=== PATIENT | male | born 1940 | race Caucasian/White ===

== ENCOUNTER 2022-12-23 11:41 | Outpatient (CLI) | payer OTHER, SELFPAY | END 2022-12-23 11:42 | disposition home or self-care (01) | LOC: FBOREF 11:42 | PROVIDERS: PCP Family Medicine; Visit Provider Family Medicine | DX: Z00.00 Encounter for general adult medical examination without abnormal findings (principal); I10 Essential (primary) hypertension | CPT/HCPCS: 80048 ==

== ENCOUNTER 2023-07-23 07:55 | Outpatient (CLI) | payer OTHER, SELFPAY | END 2023-07-23 07:56 | disposition home or self-care (01) | LOC: NFLDREF 07-24 05:23 | PROVIDERS: PCP Family Medicine; Referring Provider Family Medicine; Visit Provider Family Medicine | DX: E11.9 Type 2 diabetes mellitus without complications (principal); E78.5 Hyperlipidemia, unspecified; I48.92 Unspecified atrial flutter; I10 Essential (primary) hypertension; E78.2 Mixed hyperlipidemia; Z86.718 Personal history of other venous thrombosis and embolism | CPT/HCPCS: 80061 ==

== ENCOUNTER 2024-01-06 11:42 | Outpatient (CLI) | payer OTHER, SELFPAY | END 2024-01-06 11:43 | disposition home or self-care (01) | PROVIDERS: PCP Family Medicine; Visit Provider Family Medicine | DX: E78.2 Mixed hyperlipidemia (principal); I10 Essential (primary) hypertension; E11.9 Type 2 diabetes mellitus without complications; K76.0 Fatty (change of) liver, not elsewhere classified | CPT/HCPCS: 80048; 80061; 84460 ==

== ENCOUNTER 2024-12-27 13:12 | Outpatient (CLI) | payer MEDICARE, SELFPAY | END 2024-12-27 13:13 | disposition home or self-care (01) | PROVIDERS: PCP Family Medicine; Visit Provider Family Medicine | DX: E78.2 Mixed hyperlipidemia (principal); I10 Essential (primary) hypertension; E11.9 Type 2 diabetes mellitus without complications | CPT/HCPCS: 80048; 80061; 82043; 82570; 84460; 85025 ==

== ENCOUNTER 2025-01-03 14:38 | Outpatient (CLI) | payer MEDICARE, SELFPAY ==
--- NOTE | 2025-01-03 15:00 | CRLHL7_ITS ---
For Patients: As a result of the Century Cures Act, medical imaging exams and procedure reports are released immediately into your electronic medical record. You may view this report before your referring provider. If you have questions, please contact your health care provider. Indication: COUGH, ESCOBAR Technique: Noncontrast CT chest Please note that all CT scans at this facility use dose modulation, iterative reconstruction, and/or weight-based dosing when appropriate to reduce radiation dose to as low as reasonably achievable. Comparison: 09/13/2018 Findings: The visualized thyroid is within normal limits. Atherosclerotic changes. Subcentimeter mediastinal lymph nodes. New nodular density within the right upper lobe measures 7.2 millimeters, 32. Emphysema. Scarring within the right lower lobe. Additional scarring adjacent to the major fissure on the right. No fracture. Impression: Emphysema with chronic scarring in the right lower lobe and right upper lobe. Nodular density in the right upper lobe measures 7 millimeters, possibly a confluence of vascular structures. Follow-up in 6 months recommended. Please note that all CT scans at this facility use dose modulation, iterative reconstruction, and/or weight-based dosing when appropriate to reduce radiation dose to as low as reasonably achievable. Dictated by Don Day MD @ 01/03/2025 3:47:30 PM (Electronically Signed)
== END 2025-01-03 14:39 | disposition home or self-care (01) ==
PROVIDERS: PCP Family Medicine; Visit Provider Family Medicine
DX: J44.9 Chronic obstructive pulmonary disease, unspecified (principal); R91.8 Other nonspecific abnormal finding of lung field; J43.8 Other emphysema; R06.09 Other forms of dyspnea
CPT/HCPCS: 71250